=== PATIENT | female | born 1965 | race Caucasian/White ===

== ENCOUNTER 2017-01-26 11:24 | Emergency (ER) | payer OTHER ==
[2017-01-26 12:23] LABS: Anion Gap 15 mmol/L (10-20); BUN (Urea Nitrogen) 14 mg/dL (9.8-20.1); Calc. Creatinine Clearance 0 mL/min (70-130); Calcium 8.8 mg/dL (7.8-10.44); Carbon Dioxide 26 mmol/L (22-29); Chloride 104 mmol/L (98-107); Estimated GFR-MDRD 68; Glucose 116 mg/dL (70-105); Sodium 141 mmol/L (136-145); Uric Acid 6.5 mg/dL (2.6-6.0)
--- NOTE | 2017-01-26 12:33 | RAD ---
THREE VIEW LEFT HAND: Clinical history: Left hand pain. FINDINGS: There are metallic artifacts overlying the fourth and fifth digits limiting detail. Otherwise no acu te fracture. There is no significant arthropathy. Minimal scattered osteophytosis present. IMPRESSION: No acute osseous abnormality identified within the left hand, within limitations. POS: REBECCA
== END 2017-01-26 13:07 | disposition home or self-care (01) ==
LOC: NAV ERS 11:24
DX: M77.9 Enthesopathy, unspecified (principal); F41.9 Anxiety disorder, unspecified; F32.9 Major depressive disorder, single episode, unspecified
CPT/HCPCS: 36415; 80048; 84550

== ENCOUNTER 2018-08-13 20:54 | Emergency (ER) | payer OTHER ==
--- NOTE | 2018-08-13 21:29 | RAD ---
LEFT ANKLE THREE VIEW 08/13/18 HISTORY: Twisted ankle. Fall. COMPARISON: None. FINDINGS: The ankle mortise is congruent. There is mild bimalleolar soft tissue swelling. There is a fracture of the fifth metatarsal proximal tuberosity with retraction of approximately 3 mm . IMPRESSION: Mildly retracted fifth metatarsal tuberosity fracture. POS: YOGI
--- NOTE | 2018-08-13 21:30 | RAD ---
LEFT FOOT THREE VIEW 08/13/18 HISTORY: Twisted ankle and fall with pain. COMPARISON: None. FINDINGS: There is a fifth metatarsal proximal tuberosity fracture. This is proximal to the metaphyseal diaphys eal junction. Lisfranc interval is poorly evaluated. IMPRESSION: 1. Fifth metatarsal proximal tuberosity fracture with retraction of 3 mm. 2. Poor evaluation of the Lisfranc interval. Recommend correlation with focal tenderness. POS: REBECCA
== END 2018-08-13 21:55 | disposition home or self-care (01) ==
LOC: NAV ERS 20:54
DX: S92.352A Displaced fracture of fifth metatarsal bone, left foot, initial encounter for closed fracture (principal); F41.9 Anxiety disorder, unspecified; F32.9 Major depressive disorder, single episode, unspecified; X50.9XXA Other and unspecified overexertion or strenuous movements or postures, initial encounter

== ENCOUNTER 2021-07-10 11:09 | Emergency (ER) | payer BC | END 2021-07-10 11:57 | disposition home or self-care (01) | LOC: NAV ERS 11:09 | DX: I10 Essential (primary) hypertension (principal) | CPT/HCPCS: 99283 ==

== ENCOUNTER 2023-04-27 10:45 | Emergency (ER) | payer BC | END 2023-04-27 11:55 | disposition home or self-care (01) | LOC: NAV ERS 10:45 | DX: M54.6 Pain in thoracic spine (principal); Z79.899 Other long term (current) drug therapy | CPT/HCPCS: 99282 ==

== ENCOUNTER 2023-04-27 17:09 | Outpatient (CLI) | payer BC | END 2023-04-27 17:10 | disposition home or self-care (01) | LOC: NAV RAD 17:09 | PROVIDERS: ATTEND Nurse Practitioner Family | DX: B02.9 Zoster without complications (principal) ==

== ENCOUNTER 2025-03-07 16:23 | Outpatient (CLI) | payer BC | END 2025-03-07 16:24 | disposition home or self-care (01) | LOC: NAV RAD 16:23 | PROVIDERS: ATTEND Nurse Practitioner Family | DX: M25.561 Pain in right knee (principal) ==